=== PATIENT | female | born 1950 | race Caucasian/White ===

== ENCOUNTER 2020-12-19 15:22 | Emergency (ER) | payer MEDICARE, OTHER, SELFPAY ==
[2020-12-19 15:24] VITALS: BP 142/62; PULSE 85; RESP 16; TEMP 35.9; O2SAT 96; BMI 32.8
[2020-12-19 15:25] VITALS: BP 142/62; PULSE 85; RESP 16; TEMP 35.9; O2SAT 96
[2020-12-19 16:13] VITALS: BP 134/68; PULSE 82; RESP 28; TEMP 37.8; O2SAT 97
[2020-12-19] MEDS: 0.9% Normal Saline 1,000 ML 999 ML IV (16:26)
--- NOTE | 2020-12-19 16:50 | RAD_ITS ---
STUDY: X-RAY CHEST REASON FOR EXAM: Female, 70 years old. Fever TECHNIQUE: Frontal view of the chest COMPARISON: None. FINDINGS: The lungs are clear. There are no pleural effusions. There is no pneumothorax. The heart is normal in size. The visualized osseous structures are within normal limits. RAD/Chest 1 View (Portable) IMPRESSION: No acute thoracic pathology. Electronically Signed: Franklin Abbott MD at 18:16 EDT Tel , Service support ,
[2020-12-19 16:52] LABS: Absolute Lymphocyte Count 0.61 X10^3/uL (0.83-4.51); Absolute Neutrophil Count 4.5 X10^3/uL (2.0-7.7); Basophil# 0.06 X10^3/uL; Basophil% 1.1 % (0-1); Eosinophil# 0.01 X10^3/uL; Eosinophils% 0.2 % (0-5); Hematocrit 36.2 % (37-47); Hemoglobin 11.7 g/dL (12.0-15.0); Lymphocyte # 0.61 X10^3/ul (0.83-4.51); Lymphocyte % 10.9 % (19-41); Mean Corp Hgb Conc 32.3 g/dL (32-36); Mean Platelet Vol. 10.3 fl (6.2-12.0); Monocyte% 7.1 % (0-10); NRBC Flagged by Analyzer 0 % (0-5); Neutrophil # 4.52 X10^3/uL (2.7-7.7); Neutrophil % 80.3 % (47-70); Platelet Count 251 K/mm3 (150-450); RBC Distribution Width CV 12.6 % (11.6-14.6); RBC Distribution Width SD 44.8 fl (35.1-43.9); Red Blood Count 3.77 M/mm3 (4.2-5.4); White Blood Count 5.6 K/mm3 (4.4-11.0)
[2020-12-19 17:13] LABS: AST(SGOT) 122 U/L (15-37); Alanine Aminotransfer ALT/SGPT 96 U/L (13-56); Albumin, Serum 3.5 g/dL (3.2-5.0); Alkaline Phosphatase 104 U/L (45-117); Anion Gap 5 (5-15); BUN 13 mg/dL (7-18); BUN/Creat Ratio 14.5 RATIO (10-20); Calcium,Total 8.7 mg/dL (8.5-10.1); Chloride 100 mmol/L (98-107); EST Glomerular Filtration Rate 66 mL/min (>60); Est Glom Filt Rate - Afr Amer 80 mL/min (>60); Estimated Creatinine Clearance 42.97 ml/min; Globulin 3.4 g/dL (2.2-4.2); Glucose 108 mg/dL (74-106); Potassium 4.1 mmol/L (3.5-5.1); Protein, Total 6.9 g/dL (6.4-8.2); Sodium Level 133 mmol/L (136-145)
[2020-12-19 17:18] VITALS: BP 124/64; PULSE 86; RESP 26; TEMP 37.7; O2SAT 97
[2020-12-19 17:22] LABS: Mucous, Urine 0 SEEN /hpf (<or=2+); Red Blood Cells-Urine 0 SEEN /hpf (0-5); Squamous Epithelial Cells - UA 0 SEEN /hpf (5-10)
[2020-12-19 17:36] LABS: Color, Urine Yellow (Yellow); Glucose, Dipstick Normal (Normal); Ketone-Dipstick 5 mg/dl (Negative); Leukocyte Esterase-Dipstick 25 /ul (Negative); Nitrite-Dipstick Negative (Negative); Occult Blood-Urine Negative /ul (Negative); Protein-Dipstick Negative (Negative); Urine Bilirubin Dipstick Negative (Negative); Urine Clarity Clear (Clear); Urine Urobilinogen Normal (Normal)
[2020-12-19 17:43] LABS: Bacteria RARE /hpf (None Seen); White Blood Cells 0-5 SEEN /hpf (0-5)
[2020-12-19 18:01] LABS: International Normalized Ratio 1.1; Prothrombin Time (Protime)PT. 13.8 SECONDS (11.7-14.9)
[2020-12-19 18:02] LABS: Partial Thromboplast Time 30.8 Seconds (24.1-36.2)
[2020-12-19 18:22] VITALS: BP 128/63; PULSE 80; RESP 26; TEMP 38.4; O2SAT 97
--- NOTE | 2020-12-19 18:38 | ED.DCSUM_ITS ---
- ER Visit Summary Date of Service: 12/19/20 Chief Complaint: Fever History of Present Illness: The patient is a [address] Bain. She reports she has a fever that began 2 days ago. Is been up to 102 degrees at highest. She denies any sore throat or cough. No chest pain or shortness of breath. She reports has been nausea and vomited once. No blood or emesis. No abdominal pain or diarrhea. No melena medic easier. No dysuria or frequency. Patient reports that she has a rash on the left side of her neck that began approximately 6 days ago. Is not painful. It does itch. Physical Examination: Vitals: 101.1, 120/63, 80, 26, 97% on room air she is not hypoxic. General: Well-nourished and well-developed. Head: Normocephalic atraumatic. Neck: Supple, no lymphadenopathy. No JVD. Nontender. Cardiovascular: Regular rate and rhythm. No murmurs. Respiratory: No respiratory distress. Clear to auscultation bilaterally. Abdominal: Soft, nontender, nondistended, normal bowel sounds. No guarding, rebound, or peritoneal signs. Back: Nontender. Extremities: Nontender, no edema. Skin: To the left side of her neck there is a splinter that is approximately 5 mm long with surrounding erythema. There is no induration or fluctuance. Neurologic: Alert and oriented ?3. Cranial nerves II through XII are intact. Normal strength and sensation. Psych: Normal affect. Test Results: CBC shows an H&H 11.7 36.2, second neutrophils 80, lymphocytes 11. Chem-7 shows a sodium 133 and glucose 108. LFTs show an ALT of 96 and AST of 122. INR is 1.1. PTT is 30.8. UA shows no evidence of infection. Lactic acid is 1.0. Clinical Impression(s) from Imaging Studies Chest X-Ray 12/19/20 16:50 IMPRESSION: No acute thoracic pathology. Electronically Signed: Franklin Abbott MD at 18:16 EDT Tel , Service support , Emergency Department Course and Treatment: Patient had an IV placed. She was given a liter of normal saline. She was given Zofran IV. She was given doxycycline and Tylenol p.o. Reexamination of the erythema on her neck actually looks improved during her stay here. Treatment Plan: Patient will be discharged on doxycycline. Instructed to follow-up with her primary care physician in 2 days for wound check. Return to the emergency department for any worsening symptoms. Disposition: To home in improved and stable condition. Impression: 1. Fever. 2. Cellulitis to neck. 3. Splinter neck, removed. This note was generated with boarding pass dictation software. It may contain incorrect words, spelling, and punctuation that were not noted in review of the chart prior to signing ED Disposition - Plan for ED Patient: Disposition: Home or Assisted Living Instructions: ED Cellulitis, ED FUO Adult Prescriptions: Doxycycline 100 mg PO BID #14 capsule Prescription Printed Ondansetron [Zofran Odt] 4 mg PO Q8H PRN PRN #10 tablet PRN Reason: Nausea Prescription Printed Referrals: Niki Bain MD [Primary Care Provider] - 2 Days for wound check
[2020-12-19] MEDS: Doxycycline 100 MG CAPSULE PO (18:58)
[2020-12-19] MEDS: Ondansetron 4 MG/2 ML Vial IV (18:58)
[2020-12-19] MEDS: Acetaminophen 500 MG Tablet 1000 MG PO (18:58)
[2020-12-19 19:00] VITALS: BP 125/57; PULSE 86; RESP 20; TEMP 36.6; O2SAT 96
== END 2020-12-19 19:32 | disposition home or self-care (01) ==
LOC: ED 16:17
PROVIDERS: Emergency Provider Emergency Medicine; PCP Internal Medicine
DX: L03.221 Cellulitis of neck (principal); R50.9 Fever, unspecified; S10.95XA Superficial foreign body of unspecified part of neck, initial encounter; W45.8XXA Other foreign body or object entering through skin, initial encounter; Y93.9 Activity, unspecified; Y92.9 Unspecified place or not applicable
CPT/HCPCS: 71045; 80053; 81001; 83605; 85025; 85610; 85730; 87040; 87086; 87088; 96361; 96374; 99285; J7030; A4216; J2405

== ENCOUNTER 2021-09-13 12:35 | Emergency (ER) | payer MEDICARE, OTHER, SELFPAY ==
[2021-09-13 12:36] VITALS: BP 108/52; PULSE 64; RESP 15; TEMP 36.1; O2SAT 97; BMI 31.4
--- NOTE | 2021-09-13 14:08 | ED.RN ---
PT AMBULATES TO ROOM WITH A CANE, PT STATES THAT SHE DOES NOT NORMALLY USE A CANE.
--- NOTE | 2021-09-13 16:05 | RAD_ITS ---
STUDY: X-RAY - RIGHT KNEE REASON FOR EXAM: Female, 71 years old. atraumatic knee pain TECHNIQUE: 4 view(s) of the knee. COMPARISON: None. FINDINGS: Normal visualized distal femur. Normal visualized proximal tibia and fibula. Normal proximal tibiofibular articulation. There is no demonstrated fracture. There is mild degenerative arthrosis of the medial femorotibial compartment. There is mild degenerative arthrosis of the lateral femorotibial compartment. There is severe degenerative arthrosis of the patellofemoral articulation. There is no demonstrated joint effusion. The soft tissue structures are unremarkable. RAD/Knee 4 or More Views IMPRESSION: Degenerative arthrosis. Electronically Signed: Ramon Sabillon MD at 17:23 EST , Service support ,
--- NOTE | 2021-09-13 18:16 | ED.VIS.LOWEX ---
HPI History of Present Illness Chief Complaint: Lower Extremity Injury Detail of Chief Complaint: Right knee atraumatic swelling Informant: patient Onset/Context/Timing Onset: Yesterday Current Severity: Mild Maximum Severity: Mild Associated Symptoms Associated Symptoms: Negative for Parasthesia, Weakness and Loss of Funtion Narrative Narrative: 71-year-old female with atraumatic right knee pain and swelling last couple days. Denies any fever or redness. She fell a month ago but said it has not been bothering her till now. She has no history of effusions or joint surgery. She denies any signs of infection. Prior similar symptoms: No Recent Illness/Hospitalization: No PFSH PFSH Medical History High cholesterol Home Medications doxycycline monohydrate 100 mg PO BID #14 capsule 12/19/20 [Rx Last Taken Unknown] ondansetron 4 mg PO Q8H PRN PRN #10 tablet 12/19/20 [Rx Last Taken Unknown] Allergy/AdvReac Type Severity Reaction Status Date / Time No Known Allergies Allergy Verified 09/13/21 12:36 Social History Smoking Status: Never smoker ROS ROS ED ROS Narrative Denies recent illness. Review of Systems ROS Unobtainable: Denies due to encephalopathy Constitutional Constitutional ED: Denies chills, fever(s) or subjective Eyes Eyes: Denies change in vision ENT ENT ED: Denies ear pain Cardiovascular Cardiovascular: Denies chest pain Respiratory/Chest Respiratory/Chest: Denies cough or dyspnea Gastrointestinal Gastrointestinal: Denies abdominal pain, diarrhea, nausea or vomiting Genitourinary Genitourinary ED: Denies dysuria Musculoskeletal Musculoskeletal: Denies myalgias Integumentary Denies rash Neurologic Neurologic: Denies headache(s) Psychiatric Psychiatric: Denies depression Endocrine Endocrinology: Denies polyuria Hematologic/Lymphatic Hematologic/Lymphatic: Denies easy bruising Allergic/Immunologic Allergic/Immunologic ED: Denies urticaria EXAM Physical Exam Narrative Exam Narrative: 71-year-old female no acute distress. H EENT exam unremarkable. Moist with members. Lungs are clear. Heart regular rhythm. Abdomen soft nontender. Right knee swollen has an effusion there is no redness. No signs of cellulitis. No signs of septic joint. Slightly more comfortable with movement. Right foot is neurovascular intact with normal dorsi plantarflexion. Calf is nontender without edema. Otherwise exam unremarkable. Const Vital Signs: 09/13/21 12:36 Temperature 97.0 F L Temperature Source Temporal Pulse Rate 64 Respiratory Rate 15 Blood Pressure 108/52 L Blood Pressure Mean 70 Pulse Ox 97 Oxygen Delivery Method Room Air Positive well developed; Negative for cachectic, contractures or unkempt General Appearance ED: well developed and NAD; Negative for unkempt, cachectic or contractures Nutritional Appearance: Negative for cachectic HEENT Reports moist mucous membranes normocephalic and atraumatic; Negative for trauma or tenderness Eyes PERRL Neck full ROM and supple Thyroid: Negative for tender Chest Wall inspection of chest normal and palpation of chest normal Resp normal respiratory effort, no retractions and clear to auscultation bilaterally Auscultation: Negative for rales Cardio regular rate, regular rhythm, S1 normal heart sound, S2 normal heart sound and no murmurs GI non-tender, non-distended and no masses Auscultation: normoactive bowel sounds Palpation: soft; Negative for tender, guarding or rebound tenderness present Back/Spine no CVA tenderness General Back: Negative for CVA tenderness Cervical Spine: Negative for cervical spine tenderness Thoracic Spine / Upper Back: Negative for thoracic spinal tenderness Lumbar Spine / Lower Back: Negative for lumbar spinal tenderness Extremity normal to inspection and full ROM Extremity Narrative: Except right knee swollen and tender. No redness. No cellulitis. No septic joint. She has flexion extension. Worse with flexion. Exam consistent with an effusion. General Extremety ED: Negative for cyanosis or edema General Extremity: Negative for cyanosis or edema Neuro oriented x3 Sensorium / Orientation: alert, oriented to person, oriented to place and oriented to time; Negative for confused or lethargic Motor Exam: strength 5/5 throughout Psych mental status grossly normal Appearance: Negative for unkempt Mood & Affect: Negative for anxious Skin no wounds Lesions: no lesions Rashes: no rashes Trauma: Negative for abrasion, laceration or puncture MDM MDM MDM Narrative Medical decision making narrative: 71-year-old female with right knee most likely arthritic effusion. Does not look like a septic joint. X-ray was obtained shows arthritis but good joint space. No acute injury. Interpreted by myself. And the radiologist. Discussed with the patient she wants something done now she will be given a intra-articular joint injection of Kenalog and bupivacaine. Outpatient follow-up with an orthopedic physician. Radiography Diagnostic Testing: Clinical Impression(s) from Imaging Studies Knee X-Ray 09/13/21 16:05 IMPRESSION: Degenerative arthrosis. Electronically Signed: Ramon Sabillon MD at 17:23 EST , Service support , Right knee x-ray multiple views interpreted by myself and radiologist shows chronic changes consistent with arthritis but no acute fracture. Procedures Other Procedures Procedure(s): Right knee injection. Knee was cleaned with alcohol swabs. Using a lateral approach I injected 10 cc of bupivacaine and 40 mg of Kenalog. Patient tolerated procedure well. She was instructed to watch for any signs of infection. Ice and Tylenol and Motrin for pain. Discharge Plan Triage Chief Complaint: Lower Extremity Injury ED Provider: Kane Cochran Dx/Rx/DC Orders Clinical Impression: Arthritis, Effusion of right knee Instructions: ED Knee Effusion Prescriptions: No Action doxycycline monohydrate 100 MG capsule 100 mg PO BID Qty: 14 RF: 0 ondansetron 4 MG tablet 4 mg PO Q8H PRN PRN (Reason: Nausea) Qty: 10 RF: 0 Primary Care Provider: Niki Bain Referrals: Niki Bain MD [Primary Care Provider] - As Needed Rome Vinson DO [STAFF PHYSICIAN] - 1 Week if not improving Activity Restrictions/Additional Instructions: Ice and elevate your right knee to decrease pain and swelling. Tylenol for pain. Motrin up to 400 mg which is 2 pills twice a day for the next week to decrease pain and swelling. I injected your knee with Kenalog which is a steroid and bupivacaine which is a anesthetic. This should improve your symptoms. If you notice fever, redness or is a lot worse return to have it reevaluated. Follow-up with a local orthopedic physician to have this reevaluated if not improving. Disposition Disposition: Home, Self Care
[2021-09-13] MEDS: Triamcinolone Acetonide 40 MG/ML Vial INTRAARTIC (18:21)
[2021-09-13 18:23] VITALS: RESP 14
[2021-09-13] MEDS: Bupivacaine Mpf 0.5% 30 ML VIAL INFILT (18:23)
== END 2021-09-13 19:06 | disposition home or self-care (01) ==
PROVIDERS: Emergency Provider Emergency Medicine; PCP Internal Medicine; Visit Provider Emergency Medicine
DX: M17.11 Unilateral primary osteoarthritis, right knee (principal); M25.461 Effusion, right knee
CPT/HCPCS: 73564; 99282

== ENCOUNTER 2022-07-12 10:26 | Emergency (ER) | payer MEDICARE, OTHER, SELFPAY ==
[2022-07-12 10:27] VITALS: BP 115/44; PULSE 93; RESP 16; TEMP 35.4; O2SAT 96; BMI 34.0
--- NOTE | 2022-07-12 10:55 | EX.ED.VIS.UR ---
HPI HPI - URI History of Present Illness Chief Complaint: Cough Narrative Narrative: 71-year-old female who denies significant past medical history presents with symptoms of COVID-19. She states she had the initial immunizations a few years ago. Yesterday she had subjective fever, sweatiness, generalized weakness, cough, runny nose, and sore throat. She states that she has lost her sense of smell and taste. She slept all day and is very fatigued. Her cough is nonproductive. She denies other symptoms, but presents because she thinks she may have COVID-19. No dysuria or hematuria. ROS ROS ED ROS Narrative Constitutional: Subjective fever, no chills. HEENT: Positive sore throat. No neck pain. No loss of vision. Positive rhinorrhea. Loss of taste and smell. Cardiovascular: No chest pain. No palpitations. No pedal edema. Respiratory: Nonproductive cough, no shortness of breath. Abdominal: No abdominal pain. No nausea. No vomiting. Genitourinary: No dysuria. No hematuria. Musculoskeletal: No myalgias. No arthralgias. Neurologic: No headaches. No dizziness. No lightheadedness. Skin: No rash. No change in color. Psychiatric: No depression. No anxiety. [facility] Medical History High cholesterol Home Medications doxycycline monohydrate 100 mg capsule 100 mg PO BID #14 CAPSULES 12/19/20 [Rx Last Taken Unknown] ondansetron 4 mg disintegrating tablet 4 mg PO Q8H PRN PRN Nausea #10 tabs 12/19/20 [Rx Last Taken Unknown] Allergy/AdvReac Type Severity Reaction Status Date / Time No Known Allergies Allergy Verified 07/12/22 10:27 Social History Smoking Status: Never smoker EXAM Physical Exam Narrative Exam Narrative: Afebrile. Vital signs noted. Nontoxic-appearing. HEENT: Normocephalic. Atraumatic. PERRL, EOMI. Neck soft and supple. No point tenderness or step off. Cardiovascular: Regular rate and rhythm. No murmurs, rubs, or gallops appreciated. Respiratory: No tachypnea. Lungs clear to auscultation bilaterally. Gastrointestinal: Abdomen soft, nontender, with normoactive bowel sounds. No rebound or guarding. Neurological: Awake. Alert. Nonfocal, nonlateralizing. Skin: No rash. Normal color. No pallor. Musculoskeletal: No pedal edema. Full range of motion extremities. Const Vital Signs: 07/12/22 10:27 07/12/22 10:51 Temperature 95.8 F L Temperature Source Temporal Pulse Rate 93 Respiratory Rate 16 Respiratory Effort Normal Respiratory Depth Normal Respiratory Pattern Normal Blood Pressure 115/44 L Blood Pressure Mean 67 Pulse Ox 96 Oxygen Delivery Method Room Air MDM MDM MDM Narrative Medical decision making narrative: Pulse ox is 96% on room air without evidence of hypoxia. Do not feel chest x-ray is indicated, her lungs are clear to auscultation bilaterally. Her symptoms began yesterday. She was swabbed for COVID, influenza, and RSV. Treatment will be symptomatic. Her respiratory swabs are negative. At this point in time, I feel she be discharged safely home with follow-up. I do not feel that she requires laboratory testing. Her symptoms have only been present since yesterday. She will take [id number] medications as needed. She will follow-up with her primary care provider. Return instructions to the emergency department were reviewed. Disposition is discharged home in stable condition. Discharge Plan Triage Chief Complaint: Cough Other Complaint: Fatigue Fever ED Provider: Dm Ortiz Dx/Rx/DC Orders Clinical Impression: URI (upper respiratory infection), Fatigue, Viral syndrome Instructions: ED Viral Syndrome (Adult), ED URI, Viral, No Abx (Adult) Prescriptions: No Action doxycycline monohydrate 100 MG capsule 100 mg PO BID Qty: 14 0RF ondansetron 4 MG tablet 4 mg PO Q8H PRN PRN (Reason: Nausea) Qty: 10 0RF Primary Care Provider: Niki Bain Referrals: Niki Bain MD [Primary Care Provider] - 1 Week if not improving Disposition Disposition: Home, Self Care
[2022-07-12 12:09] VITALS: BP 134/78; PULSE 94; RESP 18; TEMP 36.4; O2SAT 99
== END 2022-07-12 12:14 | disposition home or self-care (01) ==
PROVIDERS: Emergency Provider Emergency Medicine; PCP Internal Medicine; Visit Provider Emergency Medicine
DX: J06.9 Acute upper respiratory infection, unspecified (principal); E78.00 Pure hypercholesterolemia, unspecified; B34.9 Viral infection, unspecified; Z20.822 Contact with and (suspected) exposure to COVID-19
CPT/HCPCS: 87428; 87807; 99282